=== PATIENT | female | born 1995 | race Caucasian/White ===

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

== ENCOUNTER → 2017-01-26 | Outpatient (CLI) | payer BC | LOC: MOB LAB 14:02 | PROVIDERS: ATTEND Obstetrics & Gynecology | DX: R10.31 Right lower quadrant pain (principal) | CPT/HCPCS: 87491; 87591 ==

== ENCOUNTER 2017-05-24 04:51 | Emergency (ER) | payer BC ==
[2017-05-24 05:07] VITALS: RESP 18; TEMP 97.9
--- NOTE | 2017-05-24 05:22 | PDOC ---
Female Problem HPI - General Chief Complaint: Genitourinary Complaint Stated Complaint: PEEING BLOOD, ABD CRAMPING AND NAUSEA Date Seen by Provider: 05/24/17 Time Seen by Provider: 05:16 Source: POSITIVE: Patient Exam Limitations: POSITIVE: No limitations Nurse's Notes Reviewed & Considered: Yes - History of Present Illness Initial Comments: This is a 21-year-old female who presents to the emergency department with a history of waking up at her normal time this morning about 3:15. She went to the bathroom, noticed that her urine was bright red. She does have some lower abdominal crampy pain, no flank pain. She does have some nausea but no vomiting. No dysuria. No fevers chills or body aches. - Patient Home Medications Home Medications: Home Medications NK [No Home Medications Reported] 12/09/16 - Patient Allergies Allergies/Adverse Reactions: Allergies Allergy/AdvReac Type Severity Reaction Status Date / Time hydrocodone Allergy Anaphylaxis Verified 05/24/17 04:54 Penicillins Allergy HIVES Verified 05/24/17 04:54 adhesive AdvReac ITCHING Verified 05/24/17 04:54 Past Medical History - heen HEENT History: Other (please comment) Additional HEENT History: NEAR SIGHTED, WISDOM TEETH REMOVAL Cardiovascular History: Denies History Respiratory History: Asthma, Other (please comment) Additional Respiratory History: SEASONAL ALLERGIES Gastrointestinal History: GERD, Gallbladder Disease, Other (please comment) Additional Gastrointestinal History: LAPBAND, CHOLECYSTECTOMY Genitourinary History: Denies History Endocrine History: Denies History Musculoskeletal History: Denies History Prosthesis or Implant: Yes (LAP BAND) Neurological History: Denies History Blood Disorders: Denies History Psychiatric History: Denies History History of Sexually Transmitted Diseases: No Female Reproductive History: Denies History Obstetrical History: Denies History Cancer History: Denies History In Past Year Been Physically Harmed or Verbally Threatened: No History of MDRO: No History of Other Communicable Diseases: No Tobacco Use: Never Smoker Alcohol Use: Occasionally Substance Use Type: None Previous Surgical History: Yes Type / Date of Surgery: LAP BAND 06/06. TONSILLECTOMY/ADENOIDECTOMY 6 YEARS AGO. WISDOM TEETH REMOVAL. CHOLECYSTECTOMY. RIGHT LABRUM REPAIR Anesthesia Reactions: No Malignant Hyperthermia: No Significant Family History: No pertinent family hx Past Medical History Reviewed: Reviewed - No Changes ROS - Limitations ROS Limitations: No Limitations Constitution: REPORTS: Chills Respiratory: REPORTS: Denies Resp Symptoms Neurological: REPORTS: Denies Neuro Symptoms Gastrointestinal: REPORTS: Abdominal Pain, Nausea. DENIES: Vomitting Genitourinary: REPORTS: Hematuria. DENIES: Dysuria, Flank Pain Female Genitourinary Exam - General Appearance General Appearance: POSITIVE: Alert, Cooperative, No Acute Distress - HEENT HEENT: NEGATIVE: Scleral Icterus - Respiratory Respiratory: POSITIVE: No Respiratory Distress, Breath Sounds Normal - Cardiovascular Cardiovascular: POSITIVE: Regular Rate and Rhythm, Heart Sounds Normal - Abdomen Additional Abdominal Details: Abdomen is soft, nondistended, she does have some [id number] suprapubic tenderness palpation, but no rebound or guarding. She has active bowel sounds no obvious organomegaly, no CVA tenderness to percussion. - Back Back: NEGATIVE: CVA Tenderness (R), CVA Tenderness (L) Female Genitourinary Progress - Results Reviewed by me Lab Results Reviewed: Yes Lab Results:: Laboratory Results 05/24/17 Range/Units 05:22 Ur Collection Type Clean catch urine Urine Color Red Urine Clarity Turbid (CLEAR) Urine pH 5.0 (5.0-8.5) Ur Specific [place] 1.025 (1.005-1.030) Urine Protein >300 (NEG) mg/dl Urine Glucose (UA) Negative (NEG) mg/dL Urine Ketones 80 (NEG) Urine Occult Blood Large H (NEG) Urine Nitrate Positive H (NEG) Urine Bilirubin Large (NEG) Urine Urobilinogen 1.0 (0.2) EU/dL Ur Leukocyte Esterase Large (NEG) Urine RBC >100 (NONE) /hpf Urine WBC 10-15 (NONE) Ur Squamous Epith Cells Few (NONE) Ur Renal Epithelial Cell None (NONE) Urine Crystals None Urine Bacteria Few (NONE) Urine Casts None (NONE) Urine Mucus None (NONE) Urine Trichomonas None (NONE) Urine Yeast None (NONE) Ur Culture Indicated? Culture set - Patient's Progress Re-Examine Time: 05:42 Re-Examine Comment: Patient unchanged. Urinalysis results discussed. Status: POSITIVE: Unchanged MDM / ED Course: Emergency room course: After initial evaluation, a UA was obtained. Those results indicate she does have an early cystitis. Since she is nontoxic appearing, has no evidence of acute pyelonephritis, we'll go ahead and discharge her with prescription for Macrobid. Return to the emergency department if symptoms get worse. - Consult Counseled: POSITIVE: Patient, RE: Lab Results, RE: DX, RE: Need for F/U Patient Care Time - Estimated PCT Patient Care Time (In Minutes): 10 Vital Signs - Recent Vital Signs Vital Signs: Vital Signs (Last 8 hours) Temp Pulse Resp BP Pulse Ox 05/24/17 05:03 97.9 F 80 18 120/74 99 05/24/17 04:55 97.9 F 80 18 120/74 99 Discharge Clinical Impression: UTI (urinary tract infection) Discharge Disposition: Discharged to Home Condition: Stable Patient Instructions Given at Discharge: Urinary Tract Infection in Women (ED)
[2017-05-24 05:29] LABS: BILIRUBIN,URINE LARGE (NEG); CLARITY,URINE TURBID (CLEAR); COLOR,URINE RED; GLUCOSE, URINE (UA) NEGATIVE (NEG); NITRATE,URINE POSITIVE (NEG); OCCULT BLOOD,URINE LARGE (NEG); PROTEIN,URINE >300 mg/dl (NEG)
[2017-05-24 05:37] LABS: BACTERIA,URINE FEW; RBC,URINE >100 /hpf; SQUAMOUS EPITHELIAL CELL,UR FEW; URINE SAMPLE TYPE CLEAN CATCH URINE
== END 2017-05-24 05:49 | disposition home or self-care (01) ==
LOC: ER 04:51
DX: N39.0 Urinary tract infection, site not specified (principal); R10.32 Left lower quadrant pain; R10.31 Right lower quadrant pain; R31.9 Hematuria, unspecified
CPT/HCPCS: 81001; 81003; 87077; 87088; 87186; 99282

== ENCOUNTER 2018-04-18 06:00 | Inpatient (IN) ==
[~2018-04-18 06:00] MED LIST: CITRIC ACID/SODIUM CITRATE 30 ML CUP PO ONE; CefOXitin Inj 2 GM in Sodium Chloride 0.9% 100 ML IV ONE; Clindamycin 900mg (Premix) 900 MG/50 ML BAG IV ONE; FAMOTIDINE 20 MG/2 ML VIAL IVP ONE; LIDOCAINE HCL 2 % 10 ML JELLY URO-JECT TOPICAL PRN; LIDOCAINE W/ SODIUM BICARB 0.5 ML SYR SUBD PRN; Lactated Ringers 1,000 ML PRIMARY IV ONE; Lactated Ringers 1,000 ML PRIMARY IV SCH; Metoclopramide Inj 10 MG/2 ML VIAL IV ONE; Oxytocin 20 Units + LR 20 UNIT/1,000 ML BAG IV SCH
[2018-04-18 06:39] LABS: Hemoglobin [HGB] 11.5 g/dL (12.0-16.0); MEAN CORPUSCULAR HEMOGLOBIN 24.1 PG (27-31); MEAN CORPUSCULAR HGB CONC 31.9 g/dL (33-37); MEAN CORPUSCULAR VOLUME 75.5 FL (81-99); MEAN PLATELET VOLUME 9.4 FL (7.4-12.2); RED BLOOD COUNT 4.77 10^6/uL (4.20-5.40)
[2018-04-18] MEDS ORDERED: fentaNYL Inj 100 MCG/2 ML VIAL ONE (06:56)
[2018-04-18] MEDS ORDERED: OXYTOCIN 10 UNIT/1 ML ONE (06:57)
[2018-04-18] MEDS ORDERED: KETOROLAC 30 MG/1 ML VIAL ONE (06:57)
[2018-04-18] MEDS ORDERED: ePHEDrine Inj 50 MG/ML AMP ONE (08:05)
[2018-04-18] MEDS ORDERED: ONDANSETRON 4 MG/2 ML VIAL ONE (08:10)
[2018-04-18] MEDS ORDERED: LIDOCAINE W/ SODIUM BICARB 0.5 ML SYR SUBD PRN (09:04)
[2018-04-18] MEDS ORDERED: Prochlorperazine Edisylate Inj 10mg/2ml vial IVP PRN (09:04)
--- NOTE | 2018-04-18 09:04 | OB.OP.NOTE ---
Operative Report - - Surgeon: Alyssa Jackson MD Clinic Specialist: Tanner Suarez MD Anesthesia Type: Regional Anesthesia Provider: Khurram Joe CRNA Surgery Date: 04/18/18 Preoperative Diagnosis: Term , elective primary section Postoperative Diagnosis: same, delivered. Procedure: Primary section Complications: none Estimated Blood Loss (mL): 600 Urine Output (mL): 100 Fluids: 700 cc LR Indications: Pt is a 22 yo G1 at 39 0/7 weeks, who elected for a primary section based on the baby measuring greater than the 80th percentile on multiple pre- vinnie ultrasounds. Findings: female infant, cephalic presentation, clear amniotic fluid. Description of Procedure: The patient was taken to the operating room where spinal anesthesia was found to be adequate. She was then prepared and draped in the normal sterile fashion in the dorsal supine position with a leftward tilt. A Pfannenstiel skin incision was then made with the scalpel and carried through to the underlying layer of fascia with the Bovie. The fascia was incised in the midline and the incision extended laterally with the Bovie. The superior aspect of the fascial incision was then grasped with Jef clamps, elevated, and the underlying rectus muscles dissected off bluntly. Attention was then turned to the inferior aspect of this incision which, in a similar fashion, was grasped with Jef clamps and the rectus muscles dissected off both bluntly and with the Bovie. The rectus muscles were then in the midline, and the peritoneum identified, tented up, and entered in blunt fashion. The peritoneal incision was then extended superiorly and inferiorly with good visualization of the bladder. The Beny retractor was then inserted and the vesicouterine peritoneum was identified. The lower uterine segment was incised in a transverse fashion with the scalpel. The uterine incision was then extended laterally in a blunt fashion. The 's head was delivered atraumatically. The nose and mouth were suctioned with the bulb suction and the cord clamped and cut after 45 seconds for delayed cord clamping. The was handed off to the awaiting nurse. Cord gases and cord blood were sent for analysis. The placenta was then removed manually; the uterus exteriorized, and cleared of all clots and debris. The uterine incision was repaired with 0 Vicryl in a running, locked fashion. A second layer of the same suture was used to obtain excellent hemostasis. The peritoneal cavity was then copiously irrigated with warm saline. The uterus was returned to the abdomen. The paracolic gutters were copiously irrigated with warm saline and a second look at the uterine incision continued to reveal excellent hemostasis. The peritoneum was closed with 3-0 Vicryl. The fascia was reapproximated with 0 vicryl in a running fashion. The subcutaneous space was irrigated with copiously with warm saline and then closed first with 3-0 Vicryl rapide and then more superficially with Insorb absorbable sutures. The skin was reapproximated with Steri-Strips and a Silverlon dressing applied. Fundal massage was completed with no clots in vaginal vault. The patient tolerated the procedure well. Sponge, lap, and needle counts were correct x2. Clindamycin was given preoperatively less than one hour prior to incision time. The patient was taken to the recovery room in stable condition.
--- NOTE | 2018-04-18 09:07 | CRNA.PROCE ---
Central Neuraxis Block Placemt - - Safety Measures: Time Out Taken - - Type of Block: Subarachnoid Reason for Block: Surgical Moniters Used During Block: EKG, SPO2, NIBP Skin Prep Used: ChloroPrep Skin Infiltration - Enter Amount Used in Comment Field: 1% Xylocaine (mL): Yes ( skin wheal) Local Anesthetic - Enter Amount Used in Comment Field: 0.75 % Bupivacaine with Dextrose (ml): Yes (15mg) Additive Used - Enter Amount Used in Comment Field: Fentanyl (mcg): Yes (15mcg) Bioclusive Dressing Applied: No Anesthesia Time - Other Weight: 112.491 kg Height: 5 ft 2 in Body Mass Index (BMI): 45.3
--- NOTE | 2018-04-18 09:08 | CRNA.PROGR ---
Anesthesia Recovery Phase I - Post Anesthesia Evaluation Patient's Condition on Arrival in Phase I: Stable Pain Level: 0
--- NOTE | 2018-04-18 09:08 | CRNA.PROGR ---
Anesthesia Time - - Start date: 04/18/18 End date: 04/18/18 - Procedure/Recovery Time Anesthesia : Time In: 07:54 Anesthesia : Time Out: 08:55 Anesthesia : Total Time: 61 - Total Anesthesia Time Total Anesthesia Time (minutes): 61 - Other Weight: 112.491 kg Height: 5 ft 2 in Body Mass Index (BMI): 45.3 Physical Status: P2 Anesthesia Type: Spinal Block Obstetrics: C/S anesthesia only
[2018-04-18] MEDS ORDERED: Prochlorperazine Edisylate Inj 10mg/2ml vial ONE (09:24)
[2018-04-18] MEDS ORDERED: LANOLIN HPA 40 GM TUBE TOPICAL PRN (09:33)
[2018-04-18] MEDS ORDERED: diphenhydrAMINE 50 MG/1 ML VIAL IV PRN (09:33)
[2018-04-18] MEDS ORDERED: Naloxone Inj 0.01 MG, Sodium Chloride 0.9% vial 1 ML IVP PRN ×2 (09:33)
[2018-04-18] MEDS ORDERED: CALCIUM CARBONATE 500 MG (TUMS) CHEWABLE TABLET PO PRN (09:33)
[2018-04-18] MEDS ORDERED: Nalbuphine Inj 20 MG/ML Ampule IVP PRN (09:33)
[2018-04-18] MEDS ORDERED: diphenhydrAMINE 25 MG CAPSULE PO PRN (09:33)
[2018-04-18] MEDS ORDERED: KETOROLAC 15 MG/1 ML VIAL IVP SCH (09:33)
[2018-04-18] MEDS ORDERED: DIPH,PERTUSS,TET(ADACEL) VAC/PF 0.5 ML (Tdap) IM ONE (09:33)
[2018-04-18] MEDS ORDERED: FAMOTIDINE 20 MG/2 ML VIAL IVP PRN (09:33)
[2018-04-18] MEDS ORDERED: Oxytocin 20 Units + LR 20 UNIT/1,000 ML BAG IV SCH (09:33)
[2018-04-18] MEDS ORDERED: D5-LR 1,000 ML PRIMARY IV SCH (09:33)
[2018-04-18] MEDS ORDERED: ONDANSETRON 4 MG/2 ML VIAL IVP PRN (09:33)
[2018-04-18] MEDS: oxyCODONE-ACETAMINOPHEN 5-325 TAB PO PRN ×3 (11:56→19:53)
[2018-04-18] MEDS: HYDROmorphone 2 MG/1 ML IV PRN ×2 (12:37→23:38)
[2018-04-18] MEDS: KETOROLAC 15 MG/1 ML VIAL IVP SCH ×2 (14:31→20:48)
[2018-04-19] MEDS: oxyCODONE-ACETAMINOPHEN 5-325 TAB PO PRN ×6 (00:02→21:02)
[2018-04-19] MEDS: KETOROLAC 15 MG/1 ML VIAL IVP SCH ×2 (03:22→09:15)
[2018-04-19 05:26] LABS: Hematocrit [HCT] 29.3 % (37.0-47.0); MEAN CORPUSCULAR HEMOGLOBIN 23.7 PG (27-31); MEAN CORPUSCULAR HGB CONC 30.7 g/dL (33-37); MEAN CORPUSCULAR VOLUME 77.3 FL (81-99); MEAN PLATELET VOLUME 9.6 FL (7.4-12.2); RED BLOOD COUNT 3.79 10^6/uL (4.20-5.40)
[2018-04-19] MEDS: Senna/Docusate Tab 1 TAB TAB PO SCH ×2 (09:15→21:06)
[2018-04-19] MEDS: HEPARIN 5000 UNIT/1 ML SUBCUT SCH ×2 (09:15→17:07)
[2018-04-19] MEDS: Prenatal Multivitamin Tab 1 TAB TAB PO SCH (09:16)
[2018-04-19] MEDS: FERROUS GLUCONATE 324 MG TABLET PO SCH ×3 (09:32→21:03)
[2018-04-19] MEDS: Ondansetron ODT Tab 4 MG TAB PO PRN ×2 (15:13→21:03)
[2018-04-19] MEDS: IBUPROFEN 800 MG TABLET PO PRN (17:07)
--- NOTE | 2018-04-19 22:56 | OB.PROGRES ---
Subjective Post Op Day: 1 Pain Management: PO Eller Catheter: No Flatus: Yes Diet: Regular Feeding Method: Exculsively Concerns / Additional Information: Has been up and showered, eller is out. Mild discomfort to incision. Working on breast feeding. Denies calf tenderness, shortness of breath or chest pain. Objective - General General Appearance: POSITIVE: No Acute Distress, Cooperative - Cardiovacular Cardiovascular Exam: POSITIVE: RRR, No Murmur Edema: +1 Pedal Edema Extremities: Negative Cristian's - Bilaterally - Respiratory Respiratory Exam: POSITIVE: Clear to Auscultation - Bilaterally, Breathing Non Labored - Reflexes Clonus (indicate extremity in comment field): Absent - Abdomen Bowel Sounds: Hypoactive Abdominal Wound Assessment: Silverlone Dressing Assesstment / Plan (1) Status post primary low transverse section Current Visit: Yes Status: Acute (2) Anemia Current Visit: Yes Status: Acute Qualifiers: Anemia type: other cause Other causes of anemia: other cause, not classified Qualified Code(s): D64.89 - Other specified anemias Assessment / Plan: -routine post-op cares. -rh positive. -rubella immune. -breast feeding coming along. consultation in place. -started heparin for BMI > 40. -possible d/c home tomorrow.
[2018-04-20] MEDS: IBUPROFEN 800 MG TABLET PO PRN ×2 (00:55→09:09)
[2018-04-20] MEDS: oxyCODONE-ACETAMINOPHEN 5-325 TAB PO PRN ×4 (00:55→13:28)
[2018-04-20] MEDS: HEPARIN 5000 UNIT/1 ML SUBCUT SCH ×2 (00:56→09:06)
[2018-04-20 01:25] VITALS: RESP 18
[2018-04-20] MEDS: Senna/Docusate Tab 1 TAB TAB PO SCH (09:09)
[2018-04-20] MEDS: FERROUS GLUCONATE 324 MG TABLET PO SCH (09:09)
[2018-04-20] MEDS: Ondansetron ODT Tab 4 MG TAB PO PRN (09:09)
[2018-04-20] MEDS: Prenatal Multivitamin Tab 1 TAB TAB PO SCH (09:09)
[2018-04-20 13:33] VITALS: BP 148/92; TEMP 97.7; O2SAT 92
--- NOTE | 2018-04-21 23:16 | DCSUMMARY ---
Hospitalization Summary Admit Date: 04/18/18 Discharge Date: 04/20/18 Primary Diagnosis:: Term IUP Primary Surgery and Date: Primary elective section on 04/18/18. Delivery Type: Hospital Course: Pt was admitted for an elective primary section. She had an uneventful surgery; for details of her operation, please see operative note elsewhere in the chart. / Postop Complications: Beulah had a normal postoperative course. She had a mild post-operative anemia , which was treated with ferrous gluconate. Her pain was well controlled with oral narcotics and motrin. Baby was nursing well when they were discharged home from the hospital. Complications: none Exam - Vitals Vital Signs: Vital Signs Temperature 97.7 F Temperature Source Oral Pulse Rate [Pulse Oximeter] 92 Pulse Rate 89 Respiratory Rate 18 Blood Pressure [Right Arm] 148/92 Blood Pressure [Left Arm] 135/81 Blood Pressure 106/74 Pulse Ox 92 Oxygen Flow Rate ra Oxygen Delivery Method Room Air Height 5 ft 2 in Weight 248 lb - General General Appearance: No Acute Distress, Cooperative - Head Head Exam: Normal Inspection - Respiratory Respiratory Exam: POSITIVE: Clear to Auscultation - Bilaterally, Breathing Non Labored - Cardiovascular Cardiovascular Exam: POSITIVE: RRR, No Murmur - GI/Abdominal GI/Abdominal Exam: POSITIVE: Normal Bowel Sounds, Non Tender, Non Distended, Soft - Extremities Extremities Exam: POSITIVE: Normal Inspection, Full ROM, Normal Capillary Refill - Neurological Neurological Exam: POSITIVE: Alert, Oriented x 3 - Psychiatric Psychiatric Exam: POSITIVE: Normal Affect, Normal Mood - Integumentary Integumentary Exam: POSITIVE: Normal Color, Warm, Dry Patient Problems - Patient Problem List (1) Status post primary low transverse section Status: Acute Code(s): Z98.891 - History of uterine scar from previous surgery Category: Medical (2) Anemia Status: Acute Code(s): D64.9 - Anemia, unspecified Qualifiers: Anemia type: other cause Other causes of anemia: other cause, not classified Qualified Code(s): D64.89 - Other specified anemias Category: Medical
== END 2018-04-20 15:33 | disposition home or self-care (01) | DRG 766 ==
LOC: OBOR 06:00 → OBIP 09:45
PROVIDERS: ADMIT Family Medicine; ATTEND Family Medicine